=== PATIENT | male | born 1965 | race Two or more races ===

== ENCOUNTER → 2017-02-12 | Outpatient (CLI) | payer OTHER ==
--- NOTE | 2017-02-13 07:52 | MR ---
EXAMINATION TYPE: MR lumbar spine wo con DATE OF EXAM: 02/12/2017 COMPARISON: NONE HISTORY: Low back pain x5-7years TECHNIQUE: Multiplanar, multisequence images of the lumbar spine were acquired. L1-L2: Decreased disc signal is indicative of disc desiccation. Small broad-based disc bulge is seen without neural foraminal narrowing or spinal canal stenosis. L2-L3: Normal disc appearance without desiccation. No herniation, protrusion or disc bulging. No ca nal stenosis is present. Foramina are patent bilaterally. L3-L4: Flattening of the disc posteriorly relates to small broad-based disc bulge without neural fora ramsey narrowing or spinal canal stenosis. Mild ligament of flavum buckling is noted at this level. L4-L5: Annular tear and small central disc protrusion are seen without resultant spinal canal stenosi s. This is superimposed upon a broad-based disc bulge creating minimal bilateral neural foraminal nadir rowing. No spinal canal stenosis. L5-S1: Intervertebral disc space loss is seen as wall as a broad-based disc bulge in combination with facet arthropathy creating moderate bilateral neural foraminal narrowing. No spinal canal stenosis. Lumbar segments are intact. No paraspinal masses are identified. Conus medullaris has a normal appe arance. Conus medullaris terminates at L1-L2. IMPRESSION: 1. Annular tear and small central disc protrusion superimposed on a broad-based disc bulge at L4-L5 r esulting in only minimal bilateral neural foraminal narrowing and no spinal canal stenosis. 2. Broad-based disc bulge and disc desiccation at L5-S1 examination with facet arthropathy creates mo derate bilateral neural foraminal narrowing.
== END ==
LOC: RADMRIMAIN 19:22
PROVIDERS: ATTEND Family Medicine
DX: M99.73 Connective tissue and disc stenosis of intervertebral foramina of lumbar region (principal); M51.26 Other intervertebral disc displacement, lumbar region; M51.37 Other intervertebral disc degeneration, lumbosacral region; M46.87 Other specified inflammatory spondylopathies, lumbosacral region
CPT/HCPCS: 72148

== ENCOUNTER → 2019-07-31 | Outpatient (CLI) | payer OTHER ==
--- NOTE | 2019-07-31 12:16 | MR ---
EXAMINATION TYPE: MR lumbar spine wo con DATE OF EXAM: 07/31/2019 COMPARISON: 02/12/2017 HISTORY: Low Back Pain TECHNIQUE: Multiplanar, multisequence images of the lumbar spine were acquired. FINDINGS: The lumbar spine vertebral bodies maintain normal vertebral body heights and alignment. Con us medullaris is unremarkable terminating at L1-L2. Remainder the disc is seen at S1-S2. Multilevel d isc desiccation is seen. L1-L2: There is disc desiccation and a small broad-based disc bulge without spinal canal stenosis or neuroforaminal narrowing. L2-L3: There is disc desiccation without spinal canal stenosis or neural foraminal narrowing. No foca l disc herniation. Minimal facet arthropathy. L3-L4: There is a small broad-based disc bulge and mild ligamentum flavum buckling. No spinal canal s tenosis nor neural foraminal narrowing. L4-L5: Annular tear and very small central disc protrusion/herniation are seen without resultant spin al canal stenosis. There is a broad-based disc bulge again resulting in minimal neural foraminal narr owing. No progression from the prior. L5-S1: Intervertebral disc space loss, facet arthropathy and broad-based disc bulge results in modera te bilateral neural foraminal. No spinal canal stenosis. IMPRESSION: 1. Similar-appearing annular tear and small central disc herniation at L4-L5 resulting in only minima l bilateral neural foraminal narrowing without spinal canal stenosis. 2. Unchanged moderate bilateral neural foraminal narrowing at L5-S1.
== END | disposition home or self-care (01) ==
LOC: RADMRIMAIN 10:44
PROVIDERS: ATTEND Physical Medicine & Rehabilitation
DX: M48.07 Spinal stenosis, lumbosacral region (principal); M48.061 Spinal stenosis, lumbar region without neurogenic claudication; M51.26 Other intervertebral disc displacement, lumbar region; F12.90 Cannabis use, unspecified, uncomplicated
CPT/HCPCS: 72148

== ENCOUNTER → 2023-10-01 | Outpatient (CLI) | payer OTHER ==
--- NOTE | 2023-10-01 10:37 | FL ---
EXAMINATION: FL Upper GI air DATE: 10/01/2023 CLINICAL INDICATION: 58-year-old male R11.2, nausea and vomiting. COMPARISON: None Total Fluoroscopy Time: 1 minute 32 seconds Total DAP: 477.57 mGym2 43 images obtained. FINDINGS: The esophagus has a normal course, caliber, motility and mucosa. There is a tiny sliding hiatal hernia present. There is no gastroesophageal reflux identified. The stomach and duodenum are free of any persistent filling defect and demonstrate a normal mucosal p attern. IMPRESSION: Tiny sliding hiatal hernia. Otherwise, unremarkable upper GI examination.
== END | disposition home or self-care (01) ==
LOC: RADUSWWP 08:02
PROVIDERS: ATTEND Internal Medicine Gastroenterology
DX: K44.9 Diaphragmatic hernia without obstruction or gangrene (principal); R11.2 Nausea with vomiting, unspecified
CPT/HCPCS: 74246

== ENCOUNTER 2023-10-10 14:11 | Observation (INO) | payer OTHER ==
--- NOTE | 2023-10-10 15:21 | ED ---
Abdominal Pain HPI - General Chief Complaint: Abdominal Pain Stated Complaint: flu/covid symptoms Time Seen by Provider: 10/10/23 15:06 Source: patient, RN notes reviewed, old records reviewed Mode of arrival: ambulatory Limitations: no limitations - History of Present Illness Initial Comments: This is a 58-year-old male to the ER for evaluation today. Patient has history of gallbladder disease and biliary colic with prior evaluation patient presents today for gallbladder evaluation with significant, patient has having increasing or worsening symptoms of pain nausea vomiting fevers. Patient was concerned he may have coronavirus but presents for further evaluation and management MD Complaint: abdominal pain -: days(s) Location: RUQ, epigastric Radiation: RUQ, epigastric Migration to: RUQ Severity: moderate Severity scale (1-10): 7 Quality: stabbing, aching Consistency: constant Improves With: nothing Worsens With: nothing Associated Symptoms: nausea, vomiting Treatments Prior to Arrival: other (0) - Related Data Allergies Allergy/AdvReac Type Severity Reaction Status Date / Time No Known Allergies Allergy Verified 10/10/23 14:34 Review of Systems ROS Statement: Those systems with pertinent positive or pertinent negative responses have been documented in the HPI. ROS Other: All systems not noted in ROS Statement are negative. Past Medical History Past Medical History: GERD/Reflux Additional Past Medical History / Comment(s): gall bladder issues, peptic ulcers, hiatal hernia, aortic aneurysm, Additional Past Surgical History / Comment(s): pins in right knee, EGD and GI scopes, Past Psychological History: Anxiety, Depression Smoking Status: Former smoker Past Alcohol Use History: None Reported Past Drug Use History: Marijuana General Exam Limitations: no limitations General appearance: alert, in no apparent distress Head exam: Present: atraumatic, normocephalic, normal inspection Eye exam: Present: normal appearance, PERRL, EOMI. Absent: scleral icterus, conjunctival injection, periorbital swelling ENT exam: Present: normal exam, mucous membranes moist Neck exam: Present: normal inspection. Absent: tenderness, meningismus, lymphadenopathy Respiratory exam: Present: normal lung sounds bilaterally. Absent: respiratory distress, wheezes, rales, rhonchi, stridor Cardiovascular Exam: Present: regular rate, normal rhythm, normal heart sounds. Absent: systolic murmur, diastolic murmur, rubs, gallop, clicks GI/Abdominal exam: Present: soft, normal bowel sounds. Absent: distended, tenderness, guarding, rebound, rigid Extremities exam: Present: normal inspection, full ROM, normal capillary refill. Absent: tenderness, pedal edema, joint swelling, calf tenderness Back exam: Present: normal inspection Neurological exam: Present: alert, oriented X3, CN II-XII intact Psychiatric exam: Present: normal affect, normal mood Skin exam: Present: warm, dry, intact, normal color. Absent: rash Course Vital Signs 10/10/23 14:28 Temperature 98.2 F Pulse Rate 77 Respiratory 18 Rate Blood Pressure 123/77 O2 Sat by Pulse 97 Oximetry - Reevaluation(s) Reevaluation #1: 10/10/23 18:07 Medical records reviewed Reevaluation #2: 10/10/23 18:07 Patient symptoms are improving here in the ER Reevaluation #3: 10/10/23 18:07 Patient informed of results and questions answered Reevaluation #4: Was pt. sent in by a medical professional or institution (, PA, FOOD COUNTER ATTENDANT, urgent care, hospital, or halfway...) When possible be specific @ -no Did you speak to anyone other than the patient for history (EMS, parent, family, police, friend...)? What history was obtained from this source @ -no Did you review nursing and triage notes (agree or disagree)? Why? @ -agree Are old charts reviewed (outside hosp., previous admission, EMS record, old EKG, old radiological studies, urgent care reports/EKG's, halfway records)? Report findings @ -yes Differential Diagnosis (chest pain, altered mental status, abdominal pain women, abdominal pain men, vaginal bleeding, weakness, fever, dyspnea, syncope, headache, dizziness, GI bleed, back pain, seizure, CVA, palpatations, mental health, musculoskeletal)? @ -prior EKG interpreted by me (3pts min.). @ -yes X-rays interpreted by me (1pt min.). @ -yes negative for acute disease CT interpreted by me (1pt min.). @ -no U/S interpreted by me (1pt. min.). @ -no What testing was considered but not performed or refused? (CT, X-rays, U/S, labs)? Why? @ -none What meds were considered but not given or refused? Why? @ -none Did you discuss the management of the patient with other professionals (professionals i.e. DrChaim, PA, FOOD COUNTER ATTENDANT, lab, RT, psych nurse, social media senior associate, design engineer, teacher, antisubmarine weapons officer, patient case manager)? Give summary @ -no Was smoking cessation discussed for >3mins.? @ -no Was critical care preformed (if so, how long)? @ -no Were there social determinants of health that impacted care today? How? (Homelessness, low income, unemployed, alcoholism, drug addiction, transportat ion, low edu. Level, literacy, decrease access to med. care, [facility], rehab)? @ -none Was there de-escalation of care discussed even if they declined (Discuss DNR or withdrawal of care, Hospice)? DNR status @ -no What co-morbidities impacted this encounter? (DM, HTN, Smoking, COPD, CAD, Cancer, CVA, ARF, Chemo, Hep., AIDS, mental health diagnosis, sleep apnea, morbid obesity)? @ -none Was patient admitted / discharged? Hospital course, mention meds given and route, prescriptions, significant lab abnormalities, going to OR and other pertinent info. @ - Undiagnosed new problem with uncertain prognosis? @ -no Drug Therapy requiring intensive monitoring for toxicity (Heparin, Nitro, Insulin, Cardizem)? @ -no Were any procedures done? @ -no Diagnosis/symptom? @ - Acute, or Chronic, or Acute on Chronic? @ -Acute Uncomplicated (without systemic symptoms) or Complicated (systemic symptoms)? @ -Complicated Side effects of treatment? @ -no Exacerbation, Progression, or Severe Exacerbation? @ -exacerbation Poses a threat to life or bodily function? How? (Chest pain, USA, OR, pneumonia, PE, COPD, DKA, ARF, appy, cholecystitis, CVA, Diverticulitis, Homicidal, Suicidal, threat to staff... and all critical care pts) @ -yes Reevaluation #5: Differential Abdominal Pain Men: Appendicitis, cholecystitis, diverticulosis, ischemic bowel, pancreatitis, hepatitis, UTI, gastroenteritis, AAA, incarcerated hernia, bowel obstruction, constipation, inflammatory bowel, hepatitis, peptic ulcer disease, splenic infarction, perforated viscus, testicular torsion, this is not meant to be an all-inclusive list - Consultations Consultation #1: Spoke with Dr. 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 will admit for surgical evaluation and management - Lab Data Result diagrams: 10/10/23 15:42 10/10/23 15:42 Lab Results 10/10/23 10/10/23 10/10/23 Range/Units 15:42 15:42 15:42 WBC 7.1 (3.8-10.6) k/uL RBC 4.66 (4.30-5.90) m/uL Hgb 14.4 (13.0-17.5) gm/dL Hct 43.3 (39.0-53.0) % MCV 93.0 (80.0-100.0) fL MCH 30.9 (25.0-35.0) pg MCHC 33.3 (31.0-37.0) g/dL RDW 11.8 (11.5-15.5) % Plt Count 182 (150-450) k/uL MPV 8.6 Neutrophils % 66 % Lymphocytes % 25 % Monocytes % 5 % Eosinophils % 2 % Basophils % 0 % Neutrophils # 4.6 (1.3-7.7) k/uL Lymphocytes # 1.7 (1.0-4.8) k/uL Monocytes # 0.4 (0-1.0) k/uL Eosinophils # 0.2 (0-0.7) k/uL Basophils # 0.0 (0-0.2) k/uL Sodium 140 (137-145) mmol/L Potassium 3.8 (3.5-5.1) mmol/L Chloride 107 (98-107) mmol/L Carbon Dioxide 28 (22-30) mmol/L Anion Gap 5 mmol/L BUN 14 (9-20) mg/dL Creatinine 0.67 (0.66-1.25) mg/dL Est GFR (CKD-EPI)AfAm >90 (>60 ml/min/1.73 sqM) Est GFR (CKD-EPI)NonAf >90 (>60 ml/min/1.73 sqM) Glucose 101 H (74-99) mg/dL Calcium 8.9 (8.4-10.2) mg/dL Total Bilirubin 0.9 (0.2-1.3) mg/dL AST 61 H (17-59) U/L ALT 214 H (4-49) U/L Alkaline Phosphatase 171 H (38-126) U/L Troponin I <0.012 (0.000-0.034) ng/mL Total Protein 6.8 (6.3-8.2) g/dL Albumin 4.0 (3.5-5.0) g/dL Amylase 64 (30-110) U/L Lipase 164 (23-300) U/L Influenza Type A (PCR) (Not Detectd) Influenza Type B (PCR) (Not Detectd) RSV (PCR) (Not Detectd) SARS-CoV-2 (PCR) (Not Detectd) 10/10/23 Range/Units 15:52 WBC (3.8-10.6) k/uL RBC (4.30-5.90) m/uL Hgb (13.0-17.5) gm/dL Hct (39.0-53.0) % MCV (80.0-100.0) fL MCH (25.0-35.0) pg MCHC (31.0-37.0) g/dL RDW (11.5-15.5) % Plt Count (150-450) k/uL MPV Neutrophils % % Lymphocytes % % Monocytes % % Eosinophils % % Basophils % % Neutrophils # (1.3-7.7) k/uL Lymphocytes # (1.0-4.8) k/uL Monocytes # (0-1.0) k/uL Eosinophils # (0-0.7) k/uL Basophils # (0-0.2) k/uL Sodium (137-145) mmol/L Potassium (3.5-5.1) mmol/L Chloride (98-107) mmol/L Carbon Dioxide (22-30) mmol/L Anion Gap mmol/L BUN (9-20) mg/dL Creatinine (0.66-1.25) mg/dL Est GFR (CKD-EPI)AfAm (>60 ml/min/1.73 sqM) Est GFR (CKD-EPI)NonAf (>60 ml/min/1.73 sqM) Glucose (74-99) mg/dL Calcium (8.4-10.2) mg/dL Total Bilirubin (0.2-1.3) mg/dL AST (17-59) U/L ALT (4-49) U/L Alkaline Phosphatase (38-126) U/L Troponin I (0.000-0.034) ng/mL Total Protein (6.3-8.2) g/dL Albumin (3.5-5.0) g/dL Amylase (30-110) U/L Lipase (23-300) U/L Influenza Type A (PCR) Not Detected (Not Detectd) Influenza Type B (PCR) Not Detected (Not Detectd) RSV (PCR) Not Detected (Not Detectd) SARS-CoV-2 (PCR) Not Detected (Not Detectd) - Radiology Data Radiology results: report reviewed (Ultrasound positive for porcelain gallbladder gallbladder cholecystitis), image reviewed Disposition Clinical Impression: Abdominal pain, Abdominal colic, Cholecystitis Disposition: ADMITTED IP TO THIS [facility] Condition: Fair Is patient prescribed a controlled substance at d/c from ED?: No Referrals: Dahlia Hansen MD [Primary Care Provider] - 1-2 days Time of Disposition: 18:00
[2023-10-10] MEDS: SODIUM CHLORIDE 0.9% 1,000 ML IV STA (15:53)
[2023-10-10] MEDS: ONDANSETRON 4 MG/2 ML VIAL IVP STA (16:04)
[2023-10-10] MEDS: PANTOPRAZOLE 40 MG/10 ML VIAL IVP STA (16:05)
[2023-10-10] MEDS: KETOROLAC 15 MG/ML 1 ML VIAL IVP STA (16:05)
[2023-10-10 16:10] LABS: ALT 214 U/L (4-49); AST 61 U/L (17-59); African American GFR (CKD) >90 (>60 ml/min/1.73 sqM); Alkaline Phosphatase 171 U/L (38-126); Amylase 64 U/L (30-110); Anion Gap 5 mmol/L; Blood Urea Nitrogen 14 mg/dL (9-20); Calcium 8.9 mg/dL (8.4-10.2); Carbon Dioxide 28 mmol/L (22-30); Chloride 107 mmol/L (98-107); Glucose 101 mg/dL (74-99); Lipase 164 U/L (23-300); Non-African American GFR(CKD) >90 (>60 ml/min/1.73 sqM); Potassium 3.8 mmol/L (3.5-5.1); Sodium 140 mmol/L (137-145); Total Bilirubin 0.9 mg/dL (0.2-1.3); Total Protein 6.8 g/dL (6.3-8.2)
[2023-10-10 16:12] LABS: Basophils % (A) 0 %; Eosinophils # (A) 0.2 k/uL (0-0.7); Eosinophils % (A) 2 %; HCT 43.3 % (39.0-53.0); HGB 14.4 gm/dL (13.0-17.5); Lymphocytes # (A) 1.7 k/uL (1.0-4.8); Lymphocytes % (A) 25 %; MCH 30.9 pg (25.0-35.0); MCHC 33.3 g/dL (31.0-37.0); Mean Platelet Volume 8.6; Monocytes # (A) 0.4 k/uL (0-1.0); Monocytes % (A) 5 %; Neutrophils # (A) 4.6 k/uL (1.3-7.7); Neutrophils % (A) 66 %; Platelet Count 182 k/uL (150-450); RBC 4.66 m/uL (4.30-5.90); RDW 11.8 % (11.5-15.5); WBC 7.1 k/uL (3.8-10.6)
--- NOTE | 2023-10-10 17:07 | US ---
EXAMINATION TYPE: US gallbladder DATE OF EXAM: 10/10/2023 COMPARISON: CT 03/06/2022 CLINICAL INDICATION: Male, 58 years old with history of pain; Pain/vomiting x 2 weeks. TECHNIQUE: Multiple sonographic images of the right upper quadrant are obtained. FINDINGS: EXAM MEASUREMENTS: Liver Length: 17.1 cm Gallbladder Wall: 0.39 cm CBD: 0.22 cm Right Kidney: 11.7 x 5.7 x 5.4 cm CUSTOM FEED CORN OPERATOR NOTES: Limited due to gas. Pancreas: Not well seen. Liver: Measures upper limits. Gallbladder: Wall appears thickened. Hyperechoic, heterogeneous area that appears to be mostly calcified seen within the gallbladder wit h posterior shadowing : 4.5 x 1.7 x 1.3 cm. Evidence for sonographic Bliss's sign: No CBD: Appears wnl Right Kidney: No hydronephrosis or masses seen IMPRESSION: Calcified thickened gallbladder wall with marked cholelithiasis. No pericholecystic fluid or biliary ductal dilatation. The sonographic Bliss sign is negative. Findings consistent with marked chronic l ithiasis and porcelain gallbladder. Further evaluation with CT of the abdomen and pelvis is recommend ed on a nonemergent basis.
--- NOTE | 2023-10-10 17:30 | XR ---
KUB. HISTORY: Abdominal pain. COMPARISON: None. TECHNIQUE: 2 upright views of the abdomen were obtained. FINDINGS: The lung bases are clear. There is no free intraperitoneal air beneath the diaphragm. The bowel gas pattern is nonspecific and there is no evidence of obstruction. No suspicious abdominal or pelvic calcifications are seen. There is a mixed sclerotic/lucent osseous mass in the proximal right femur. CT of the right hip would be useful for further evaluation. IMPRESSION: Nonspecific abdomen without evidence of free air or obstruction. Right femur mass and CT is recommend ed for further evaluation.
[2023-10-10] MEDS ORDERED: NALOXONE 0.4 MG/ML 1 ML VIAL IV PRN (18:01)
[2023-10-10] MEDS: AMPICILLIN-SULBACTAM 3 GM in SODIUM CHLORIDE 0.9% 100 ML IVPB STA (18:22)
[2023-10-10] MEDS: HYDROmorphone 0.5 MG/0.5 ML SYRINGE IVP STA (18:22)
[2023-10-10] MEDS: SODIUM CHLORIDE 0.9% 1,000 ML IV SCH (18:23)
[2023-10-10 22:41] LABS: Appearance,Urine Cloudy (Clear); Bilirubin,Urine Negative (Negative); Blood,Urine Negative (Negative); Color,Urine Yellow; Glucose,Urine (UA) Negative (Negative); Ketones,Urine Negative (Negative); Leukocyte Esterase,Urine Negative (Negative); Mucus,Urine Many /hpf; Nitrite,Urine Negative (Negative); Protein,Urine 1+ (Negative); RBC,Urine <1 /hpf (0-5); Specific Gravity,Urine 1.037 (1.001-1.035); WBC,Urine 2 /hpf (0-5)
[2023-10-11] MEDS: AMPICILLIN-SULBACTAM 3 GM in SODIUM CHLORIDE 0.9% 100 ML IVPB SCH ×2 (02:20→14:56)
--- NOTE | 2023-10-11 04:30 | P.HPIM ---
History of Present Illness H&P Date: 10/10/23 Chief Complaint: abd pain nausea and vomiting 58-year-old male with history of aortic aneurysm for which he takes blood pressure medications patient has been having abd pain he calls gall bladder gut wrenching pain for the past 2 weeks 03/26 in severity sharp colicky pain worse with eating, where he was told he needed surgery back on October 02. having chills, fever, having dark orange urine , constipated, vomiting non bilious non bloody . having bouts of small loose stools , but no satisfactory bowel movement , no abd distention. Decreased p.o. intake Patient also reports some right hip discomfort for which she takes Lyrica , he denies any injuries he thought that he could have pulled a muscle. I discussed with him x-ray findings suggestive of possible mass in his right femur patient is not aware of any issues and his leg other than the muscle cramps he feels every now and then. Abdominal exam voluntary guarding with tenderness in the epigastric and right upper quadrant region to deep palpation, Femur exam no palpable masses no tenderness to palpation review of systems Pertinent positives as noted in HPI. All other systems were reviewed and are negative on exam Constitutional: No acute distress, Eyes: Anicteric sclerae, moist conjunctiva, Pupils equal round reactive to light ENMT: NC/AT Oropharynx clear, no erythema, or exudates Neck: Supple, no masses, or JVD No carotid bruits No thyromegaly Lungs: Clear to auscultation Clear to percussion Normal respiratory effort, no accessory muscle use Cardiovascular: Heart regular in rate and rhythm, No murmurs, gallops, or rubs No peripheral edema Abdominal: Soft Tenderness to palpation of the epigastric and right upper quadrant with voluntary guarding no rebound or rigidity Abdomen moving with respiration Normoactive bowel sounds Extremities: No digital cyanosis No clubbing Pedal pulses intact and symmetrical Radial pulses intact and symmetrical No calf tenderness Psychiatric: Alert and oriented to person, place and time Appropriate affect fair judgement Neuro Muscles Strength 5/5 in all 4 extremities Sensation to light touch grossly present throughout Cranial nerves II-XII grossly intact Past Medical History Past Medical History: GERD/Reflux Additional Past Medical History / Comment(s): gall bladder issues, peptic ulcers, hiatal hernia, aortic aneurysm, Additional Past Surgical History / Comment(s): pins in right knee, EGD and GI scopes, Past Psychological History: Anxiety, Depression Smoking Status: Former smoker Past Alcohol Use History: None Reported Past Drug Use History: Marijuana Medications and Allergies Home Medications Medication Instructions Recorded Confirmed Type Acetaminophen-Codeine 300-30mg 1 tab PO BID 10/10/23 10/10/23 History [Tylenol w/codeine #3] Albuterol Sulfate [Albuterol 2 puff PO RT-Q6H PRN 10/10/23 10/10/23 History Sulfate Hfa] DULoxetine HCL [Cymbalta] 30 mg PO DAILY 10/10/23 10/10/23 History Dicyclomine [Bentyl] 10 mg PO TID 10/10/23 10/10/23 History Famotidine [Pepcid] 40 mg PO HS 10/10/23 10/10/23 History Fluticasone Nasal [place] [Flonase 1 spray EA NOSTRIL DAILY 10/10/23 10/10/23 History Nasal [place]and[place]s] Losartan [Cozaar] 25 mg PO DAILY 10/10/23 10/10/23 History Metoclopramide [Reglan] 10 mg PO QID 10/10/23 10/10/23 History Omeprazole 40 mg PO DAILY 10/10/23 10/10/23 History Pregabalin [Lyrica] 50 mg PO BID 10/10/23 10/10/23 History traZODone HCL [Desyrel] 200 mg PO HS 10/10/23 10/10/23 History Allergies Allergy/AdvReac Type Severity Reaction Status Date / Time No Known Allergies Allergy Verified 10/10/23 18:25 Physical Exam Vitals: Vital Signs Temp Pulse Resp BP Pulse Ox 10/11/23 03:13 52 L 98 10/11/23 02:26 97.9 F 48 L 16 170/79 96 10/10/23 21:00 57 L 16 158/71 97 10/10/23 14:28 98.2 F 77 18 123/77 97 Intake and Output 10/10/23 10/10/23 10/11/23 14:59 22:59 06:59 Other: Weight 82.554 kg Results CBC & Chem 7: 10/10/23 15:42 10/10/23 15:42 Labs: Abnormal Lab Results - Last 24 Hours (Table) 10/10/23 10/10/23 Range/Units 15:42 22:25 Glucose 101 H (74-99) mg/dL AST 61 H (17-59) U/L ALT 214 H (4-49) U/L Alkaline Phosphatase 171 H (38-126) U/L Ur Specific Power 1.037 H (1.001-1.035) Urine Protein 1+ H (Negative) Urine Mucus Many H (None) /hpf Assessment and Plan Assessment: 58-year-old male with hypertension history of aneurysm coming in with 2-week history of wrenching abdominal pain repeated nausea vomiting and constipation he is aware that he had some gallbladder disease I discussed case with ED doctor and accepted the admission for chronic gallbladder lithiasis and right femur mass for surgical evaluation with anticipated length of stay more than 2 midnights Porcelain gallbladder N.p.o. IV fluid hydration normal saline IV antibiotics with Unasyn 3 g IV piggyback every 8 hours Zofran 4 mg IV push every 8 hours as needed Famotidine 20 mg twice daily General surgery consult Liver enzymes showing elevated AST 61 ALT 214 alkaline phosphatase 171 bilirubin is within normal limits No leukocytosis white count 7.1 Hypertension controlled Continue losartan right femur mass incidental finding orthopedic consult Blood work overall unremarkable sodium 140 potassium 3.8 BUN 14 creatinine 0.67 Hemoglobin unremarkable 14.4 Urinalysis unremarkable Acute respiratory viral panel negative for COVID RSV and influenza Full code DVT prophylaxis heparin subcu 3 times daily 5000 units GI prophylaxis on famotidine 20 mg p.o. twice daily
[2023-10-11] MEDS: IOPAMIDOL CONTRAST (ORAL USE) VIAL PO PRN (09:04)
[2023-10-11] MEDS: HEPARIN SODIUM,PORCINE 5,000 UNIT/ML 1 ML VIAL SQ SCH (09:06)
[2023-10-11] MEDS: LOSARTAN 25 MG TAB PO SCH (09:31)
[2023-10-11] MEDS: PANTOPRAZOLE 40 MG TABLET PO SCH (09:31)
[2023-10-11] MEDS: PREGABALIN 50 MG CAP PO SCH (09:31)
[2023-10-11] MEDS: PANTOPRAZOLE 40 MG/10 ML VIAL IV SCH (10:14)
[2023-10-11 10:28] LABS: Basophils # (A) 0.04 X 10*3/uL (0.00-0.10); Basophils % (A) 0.6 %; Eosinophils # (A) 0.11 X 10*3/uL (0.04-0.35); Eosinophils % (A) 1.6 %; HCT 40.1 % (39.6-50.0); HGB 13.4 g/dL (13.0-17.0); Lymphocytes # (A) 1.51 X 10*3/uL (0.90-5.00); Lymphocytes % (A) 22.6 %; MCH 30.6 pg (27.0-32.0); MCHC 33.4 g/dL (32.0-37.0); MCV 91.6 FL (80.0-97.0); Mean Platelet Volume 11.8 FL (9.5-12.2); Monocytes # (A) 0.37 X 10*3/uL (0.20-1.00); Monocytes % (A) 5.5 %; NRBC Per 100 WBC 0 X 10*3/uL (0.00-0.01); Neutrophils # (A) 4.61 X 10*3/uL (1.80-7.70); Neutrophils % (A) 69.1 %; Platelet Count 185 X 10*3/uL (140-440); RBC 4.38 X 10*6/uL (4.40-5.60); RDW 11.7 % (11.5-14.5); WBC 6.68 X 10*3/uL (4.50-10.00)
[2023-10-11 11:08] LABS: ALT 159 U/L (10-49); AST 45 U/L (14-35); Albumin 3.7 g/dL (3.8-4.9); Albumin/Globulin Ratio 1.61 Ratio (1.60-3.17); Alkaline Phosphatase 181 U/L (41-126); Blood Urea Nitrogen 11.6 mg/dL (9.0-27.0); Calcium 8.8 mg/dL (8.7-10.3); Carbon Dioxide 27.8 mmol/L (21.6-31.8); Chloride 106 mmol/L (96-109); Globulin 2.3 g/dL (1.6-3.3); Glucose 125 mg/dL (70-110); Lipase 44 U/L (14-60); Magnesium 2.1 mg/dL (1.5-2.4); Phosphorus 2.3 mg/dL (2.4-5.1); Potassium 4.7 mmol/L (3.5-5.5); Sodium 141 mmol/L (135-145); Total Bilirubin 0.8 mg/dL (0.3-1.2)
--- NOTE | 2023-10-11 12:26 | P.GSCN ---
History of Present Illness Consult date: 10/11/23 History of present illness: CHIEF COMPLAINT: Abdominal pain HISTORY OF PRESENT ILLNESS: This is a 58-year-old male who presented to the hospital with complaints of right upper quadrant abdominal pain for the past 2 months. He initially felt that his pain and nausea was related to what he thought was flu or COVID infection. Patient reports that he was told prior that he had a bad gallbladder. Patient reports having nausea and vomiting. He has had increase in pain. He also reports pain along the right thigh. He thought he pulled a muscle. Gallbladder ultrasound had reported thickened gallbladder wall with gallstones and porcelain gallbladder. Also imaging had noted possible right femur mass. Orthopedics are on consult. Patient denies any alcohol use. Does report prior history of smoking. Also reports that he has had weight loss of a few pounds. PAST MEDICAL HISTORY: See below PAST SURGICAL HISTORY: See below MEDICATIONS: See below ALLERGIES: See below SOCIAL HISTORY: No illicit drug use. REVIEW OF SYSTEMS: CONSTITUTIONAL: Denies fever or chills. HEENT: Denies blurred vision, vision changes, or eye pain. Denies hemoptysis CARDIOVASCULAR: Denies chest pain or pressure. RESPIRATORY: No shortness of breath. GASTROINTESTINAL: See HPI for pertinent findings HEMATOLOGIC: Denies bleeding disorders. GENITOURINARY: Denies any blood in urine or increased urinary frequency. SKIN: Denies pruitis. Denies rash. PHYSICAL EXAM: VITAL SIGNS: Reviewed GENERAL: Well-developed in no acute distress. HEENT: No sclera icterus. Extraocular movements grossly intact. Moist buccal mucosa. Head is atraumatic, normocephalic. No nasal drainage. ABDOMEN: Soft. Nondistended. Right upper quadrant tenderness with palpation NEUROLOGIC: Alert and oriented. Cranial nerves II through XII grossly intact. LABORATORY DATA: WBC 6.68 Hgb 13.4 platelets 185 Sodium is 141 potassium 4.7 creatinine 0.8 Total bilirubin 0.8 AST 45 ALT 159 alk phos 181 Lipase 44 IMAGING: Gallbladder ultrasound reports calcified thickened gallbladder wall with marked cholelithiasis. No pericholecystic fluid or biliary ductal dilatation. Bliss sign negative. Findings consistent with marked chronic cholelithiasis and porcelain gallbladder KUB x-ray nonspecific abdomen without evidence of free air or obstruction. Right femur mass and CT is recommended ASSESSMENT: 1. Possible Chronic cholecystitis with cholelithiasis and porcelain gallbladder. Right upper quadrant abdominal pain with nausea and vomiting. Ultrasound reporting thickened gallbladder wall with cholelithiasis and porcelain gallbladder 2. Elevated LFTs 3. Left femur mass PLAN: -CT scan abdomen and pelvis ordered for further evaluation of cholecystitis -CT scan of left hip for evaluation of left femur mass. Agree with orthopedic consult -Patient is tentatively scheduled for laparoscopic cholecystectomy today with Dr. Motta -Keep patient p.o. -Continue antibiotics -Continue pain management -Continue IV fluids Physician Sr Account Executive note has been reviewed by physician. Signing provider agrees with the documented findings, assessment, and plan of care. 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 Based on total visit time, I have performed more than 50% of the visit. As above: Patient with ongoing right upper quadrant pain nausea and vomiting. I did repeat the patient's CAT scan given his symptoms and there is no signs of obstruction. There is mild duodenal thickening. No definite ulcer. Gallbladder appears inflamed and a chronic nature. Today's labs show no increasing liver enzymes however liver enzymes are slightly elevated from admission. Options discussed with patient. Will proceed with laparoscopic, possible open cholecystectomy at this time. If symptoms persist postoperatively will require upper endoscopy. He did have a recent upper GI only showing a tiny hiatal hernia however. Risks of bleeding, infection, bile leak, bile duct injury, retained common bile duct stone, trocar injury, conversion to an open procedure, hernia, anesthesia related complications were reviewed. The patient understands and wishes to proceed. Past Medical History Past Medical History: GERD/Reflux Additional Past Medical History / Comment(s): gall bladder issues, peptic ulcers, hiatal hernia, aortic aneurysm, Additional Past Surgical History / Comment(s): pins in right knee, EGD and GI scopes, Past Psychological History: Anxiety, Depression Smoking Status: Former smoker Past Alcohol Use History: None Reported Past Drug Use History: Marijuana Medications and Allergies Home Medications Medication Instructions Recorded Confirmed Type Acetaminophen-Codeine 300-30mg 1 tab PO BID 10/10/23 10/10/23 History [Tylenol w/codeine #3] Albuterol Sulfate [Albuterol 2 puff PO RT-Q6H PRN 10/10/23 10/10/23 History Sulfate Hfa] DULoxetine HCL [Cymbalta] 30 mg PO DAILY 10/10/23 10/10/23 History Dicyclomine [Bentyl] 10 mg PO TID 10/10/23 10/10/23 History Famotidine [Pepcid] 40 mg PO HS 10/10/23 10/10/23 History Fluticasone Nasal [place] [Flonase 1 spray EA NOSTRIL DAILY 10/10/23 10/10/23 History Nasal [place]] Losartan [Cozaar] 25 mg PO DAILY 10/10/23 10/10/23 History Metoclopramide [Reglan] 10 mg PO QID 10/10/23 10/10/23 History Omeprazole 40 mg PO DAILY 10/10/23 10/10/23 History Pregabalin [Lyrica] 50 mg PO BID 10/10/23 10/10/23 History traZODone HCL [Desyrel] 200 mg PO HS 10/10/23 10/10/23 History Allergies Allergy/AdvReac Type Severity Reaction Status Date / Time No Known Allergies Allergy Verified 10/10/23 18:25 Surgical - Exam Vital Signs Temp Pulse Resp BP Pulse Ox 98.2 F 77 18 123/77 97 10/10/23 14:28 10/10/23 14:28 10/10/23 14:28 10/10/23 14:28 10/10/23 14:28 Results - Labs 10/11/23 07:07 10/11/23 07:07 Abnormal Lab Results - Last 24 Hours (Table) 10/10/23 10/10/23 10/11/23 Range/Units 15:42 22:25 07:07 RBC 4.38 L (4.40-5.60) X 10*6/uL Glucose 101 H (74-99) mg/dL Phosphorus (2.4-5.1) mg/dL AST 61 H (17-59) U/L ALT 214 H (4-49) U/L Alkaline Phosphatase 171 H (38-126) U/L Total Protein (6.2-8.2) g/dL Albumin (3.8-4.9) g/dL Ur Specific [place] 1.037 H (1.001-1.035) Urine Protein 1+ H (Negative) Urine Mucus Many H (None) /hpf 10/11/23 Range/Units 07:07 RBC (4.40-5.60) X 10*6/uL Glucose 125 H (74-99) mg/dL Phosphorus 2.3 L (2.4-5.1) mg/dL AST 45 H (17-59) U/L ALT 159 H (4-49) U/L Alkaline Phosphatase 181 H (38-126) U/L Total Protein 6.0 L (6.2-8.2) g/dL Albumin 3.7 L (3.8-4.9) g/dL Ur Specific [place] (1.001-1.035) Urine Protein (Negative) Urine Mucus (None) /hpf Diabetes panel 10/10/23 10/11/23 Range/Units 15:42 07:07 Sodium 140 141 (137-145) mmol/L Potassium 3.8 4.7 (3.5-5.1) mmol/L Chloride 107 106 (98-107) mmol/L Carbon Dioxide 28 27.8 (22-30) mmol/L BUN 14 11.6 (9-20) mg/dL Creatinine 0.67 0.8 (0.66-1.25) mg/dL Glucose 101 H 125 H (74-99) mg/dL Calcium 8.9 8.8 (8.4-10.2) mg/dL AST 61 H 45 H (17-59) U/L ALT 214 H 159 H (4-49) U/L Alkaline Phosphatase 171 H 181 H (38-126) U/L Total Protein 6.8 6.0 L (6.3-8.2) g/dL Albumin 4.0 3.7 L (3.5-5.0) g/dL Calcium panel 10/10/23 10/11/23 Range/Units 15:42 07:07 Calcium 8.9 8.8 (8.4-10.2) mg/dL Phosphorus 2.3 L (2.4-5.1) mg/dL Albumin 4.0 3.7 L (3.5-5.0) g/dL Pituitary panel 10/10/23 10/11/23 Range/Units 15:42 07:07 Sodium 140 141 (137-145) mmol/L Potassium 3.8 4.7 (3.5-5.1) mmol/L Chloride 107 106 (98-107) mmol/L Carbon Dioxide 28 27.8 (22-30) mmol/L BUN 14 11.6 (9-20) mg/dL Creatinine 0.67 0.8 (0.66-1.25) mg/dL Glucose 101 H 125 H (74-99) mg/dL Calcium 8.9 8.8 (8.4-10.2) mg/dL Adrenal panel 10/10/23 10/11/23 Range/Units 15:42 07:07 Sodium 140 141 (137-145) mmol/L Potassium 3.8 4.7 (3.5-5.1) mmol/L Chloride 107 106 (98-107) mmol/L Carbon Dioxide 28 27.8 (22-30) mmol/L BUN 14 11.6 (9-20) mg/dL Creatinine 0.67 0.8 (0.66-1.25) mg/dL Glucose 101 H 125 H (74-99) mg/dL Calcium 8.9 8.8 (8.4-10.2) mg/dL Total Bilirubin 0.9 0.8 (0.2-1.3) mg/dL AST 61 H 45 H (17-59) U/L ALT 214 H 159 H (4-49) U/L Alkaline Phosphatase 171 H 181 H (38-126) U/L Total Protein 6.8 6.0 L (6.3-8.2) g/dL Albumin 4.0 3.7 L (3.5-5.0) g/dL
--- NOTE | 2023-10-11 12:50 | CT ---
EXAMINATION TYPE: CT hip RT w con DATE OF EXAM: 10/11/2023 COMPARISON: 10/11/[address] 01/19/2010. HISTORY: 58-year-old male possible mass TECHNIQUE: Contiguous axial scanning of the right hip performed with IV Contrast, patient injected wi th 100 mL of Isovue 300. Coronal/sagittal reconstructions performed. 3-D reconstructions generated on a dedicated independent workstation. CT DLP: 397.3 mGycm Automated exposure control for dose reduction was used. FINDINGS: There is a large lesion spanning the femoral neck extending into the intertrochanteric region 5.4 x 4 .1 x 2.2 cm. This is a mixed density lesion with peripheral stellate sclerotic margins, internal bony trabeculations, and mostly intrinsic fat density but some soft tissue density as well. There is slight endosteal scalloping along the anterior femoral neck cortex. Similar lesion seems to have been present on 01/19/2010. The hip joint itself is intact. Prostate gland aligned mildly enlarged at 4.37 m wide. No significant soft tissue abnormality seen. IMPRESSION: LARGE 5.4 CM MIXED DENSITY LESION INVOLVING THE RIGHT FEMORAL NECK EXTENDING DOWN INTO THE INTERTROCH ANTERIC REGION. A SIMILAR LESION WAS PRESENT ON THE OLD 01/19/2010 CT scan, findings suggest a benig n etiology. However, the slight endosteal scalloping along the anterior femoral neck cortex may predi spose the patient to pathologic fracture. Recommend orthopedic evaluation for any preventative manage ment. If asymptomatic and entirely incidental, this can be performed on an outpatient basis. Differpal tial possibility includes a mesenchymal tumor such as liposclerosing myxofibrous tumor.
--- NOTE | 2023-10-11 13:06 | CT ---
EXAMINATION TYPE: CT abdomen pelvis w con CT DLP: 899 mGycm, Automated exposure control for dose reduction was used. DATE OF EXAM: 10/11/2023 11:17 AM COMPARISON: No recent CT comparisons. CLINICAL INDICATION:Male, 58 years old with history of Cholecystitis; abdominal pain TECHNIQUE: Axial CT abdomen pelvis w con;Sagittal and coronal reformats were created on a separate w orkstation. Contrast used:100 mL of Isovue 300 with IV Contrast, (none if empty) Oral contrast used: with Oral Contrast (none if empty) FINDINGS: LOWER CHEST: Unremarkable ABDOMEN LIVER: Unremarkable GALLBLADDER AND BILE DUCTS: Cholelithiasis versus partially calcified gallbladder wall. Ultrasound fo llow-up recommended. PANCREAS: Unremarkable. SPLEEN: Unremarkable. ADRENAL GLANDS: Unremarkable. KIDNEYS AND URETERS: No evidence of hydronephrosis or renal calculus. The ureters are unremarkable. PELVIS BLADDER: Unremarkable REPRODUCTIVE: Unremarkable. ABDOMEN & PELVIS STOMACH AND BOWEL: Stomach and duodenum are unremarkable. No evidence of bowel obstruction. PERITONEUM/RETROPERITONEUM: No evidence of pneumoperitoneum or free fluid. VASCULATURE: No evidence of aortic aneurysm. MUSCULOSKELETAL: No acute osseous abnormalities LYMPH NODES: No gross evidence for lymphadenopathy. SOFT TISSUE/ABDOMINAL WALL: Unremarkable IMPRESSION: 1. No definite CT evidence of an acute process in the abdomen or pelvis. 2. Cholelithiasis versus partially calcified gallbladder wall. Ultrasound follow-up recommended.
[2023-10-11] MEDS: IV FLUID CONTINUATION 100 ML IV ONE (14:16)
[2023-10-11] MEDS: LACTATED RINGERS 1,000 ML IV ONE (14:16)
[2023-10-11] MEDS ORDERED: SUCCINYLCHOLINE CHLORIDE 200 MG/10 ML VIAL IV ONE (14:51)
[2023-10-11] MEDS ORDERED: GLYCOPYRROLATE 0.2 MG/ML 2 ML VIAL ONE (14:51)
[2023-10-11] MEDS ORDERED: PROPOFOL 10 MG/ML 20 ML VIAL IV ONE (14:51)
[2023-10-11] MEDS ORDERED: ROCURONIUM 10 MG/ML (5 ML VIAL) IV ONE (14:51)
[2023-10-11] MEDS ORDERED: LABETALOL 5 MG/ML VIAL MDV ONE (14:51)
[2023-10-11] MEDS ORDERED: MIDAZOLAM 2 MG/2 ML VIAL ONE (14:51)
[2023-10-11] MEDS ORDERED: LIDOCAINE 1% INJ 10MG/ML (20 ML MDV) ONE (14:51)
[2023-10-11] MEDS ORDERED: WATER FOR INJECTION, STERILE 10 ML VIAL IV ONE (14:51)
[2023-10-11] MEDS ORDERED: HYDROmorphone (PF) 1 MG/ML ONE (14:51)
[2023-10-11] MEDS ORDERED: hydrALAZINE HCL 20 MG/ML 1 ML VIAL ONE (14:51)
[2023-10-11] MEDS ORDERED: NEOSTIGMINE 1 MG/ML 10 ML VIAL ONE (14:51)
[2023-10-11] MEDS ORDERED: fentaNYL (PF) 50 MCG/ML 2 ML AMP ONE (14:51)
[2023-10-11] MEDS: BUPIVACAINE (PF) 0.25% 30 ML VIAL SQ ONE ×2 (15:12→15:20)
[2023-10-11] MEDS ORDERED: traMADol 50 MG TAB PO PRN (15:56)
--- NOTE | 2023-10-11 16:00 | P.OP ---
Date of Procedure: 10/11/23 Procedure(s) Performed: PREOPERATIVE DIAGNOSIS: Acute calculus cholecystitis POSTOPERATIVE DIAGNOSIS: Same PROCEDURE: Laparoscopic cholecystectomy SURGEON: Ángela EBL: Minimal see anesthesia record ANESTHESIA: Gen. COMPLICATIONS: None OPERATIVE PROCEDURE: The patient was brought and placed on the operating room table in the supine position. The patient was placed under general anesthesia at that time. The abdomen was prepped and draped in the usual sterile fashion. A small curvilinear supraumbilical incision was made. The fascia was grasped with the Dong forceps. The fascia was retracted anteriorly. The Veress needle was advanced into the peritoneal cavity. The saline drop test was normal. Insufflation took place up to 15 mmHg. A 5 mm optical trocar was advanced and the peritoneal cavity. 2 additional 5 mm trochars were placed in the right upper quadrant under direct visualization. A 12 mm trocar was advanced into the epigastric incision site. There was some adhesions inferior to our trocar entrance site from a previous hernia repair. We were away from the adhesions. The gallbladder was retracted superiorly and laterally. It had some acute and chronic inflammatory changes present. The peritoneum overlying the infundibulum was bluntly dissected. The patient's cystic duct was visualized. The junction between the cystic duct common and hepatic duct was identified. The critical view of safety was achieved after blunt dissection. The cystic duct was then divided after placement of 3 12 mm clips on the patient's side and one on the specimen side. The cystic artery was identified and clipped as well. A small vessel was seen along the gallbladder fossa and clipped as well. The gallbladder was then removed from the liver bed using electrocautery. The gallbladder was then removed from the epigastric trocar site with an Endo Catch bag. The gallbladder fossa was irrigated with saline. There was no evidence of any bleeding or biliary drainage seen. The fascia at the 12 millimeter site was closed using a Keaton-Lily 0 Vicryl stitch. The trochars were then removed. The skin at all 4 sites was closed using a 4-0 Monocryl stitch. Skin glue was utilized on the incision sites. At the end of this procedure the sponge and needle counts were correct. DISPOSITION: Stable to the recovery room
[2023-10-11] MEDS: HYDROmorphone 0.5 MG/0.5 ML SYRINGE IVP ONE (16:37)
--- NOTE | 2023-10-11 17:02 | P.CNOR ---
History of Present Illness - [facility] Consult date: 10/11/23 Requesting physician: Monae Dunn Consult reason: other (right femur mass) History of present illness: Patient is a 58-year-old male who presents to the hospital with complaints of ri ght upper quadrant pain for the past couple months. It was noted that the patient had nausea vomiting over the past couple months as well and increase in pain. Patient also notes pain in the right thigh over the past month or month and a half initially, patient thought he pulled his groin muscle. Patient denies any significant trauma/falls. Orthopedics was consulted due to right femur mass. Patient was seen in recovery this afternoon after laparoscopic cholecystectomy was performed. Patient states over the past month and a half he has had right thigh/groin pain. Patient states he normally ambulates independently. Patient denies having any significant weakness, however, patient states she does have pain when he bears weight to the right lower extremity. Patient denies any trauma/falls. Patient denies any alcohol use. Patient does report a prior history of smoking. He says there is also been a weight loss of a few pounds recently. Patient denies chest pain, breath, loss of bowel/bladder control. Past Medical History Past Medical History: GERD/Reflux Additional Past Medical History / Comment(s): gall bladder issues, peptic ulcers, hiatal hernia, aortic aneurysm, Additional Past Surgical History / Comment(s): pins in right knee, EGD and GI scopes, Past Psychological History: Anxiety, Depression Smoking Status: Former smoker Past Alcohol Use History: None Reported Past Drug Use History: Marijuana Medications and Allergies Home Medications Medication Instructions Recorded Confirmed Type Acetaminophen-Codeine 300-30mg 1 tab PO BID 10/10/23 10/10/23 History [Tylenol w/codeine #3] Albuterol Sulfate [Albuterol 2 puff PO RT-Q6H PRN 10/10/23 10/10/23 History Sulfate Hfa] DULoxetine HCL [Cymbalta] 30 mg PO DAILY 10/10/23 10/10/23 History Dicyclomine [Bentyl] 10 mg PO TID 10/10/23 10/10/23 History Famotidine [Pepcid] 40 mg PO HS 10/10/23 10/10/23 History Fluticasone Nasal [place] [Flonase 1 spray EA NOSTRIL DAILY 10/10/23 10/10/23 History Nasal [place]] Losartan [Cozaar] 25 mg PO DAILY 10/10/23 10/10/23 History Metoclopramide [Reglan] 10 mg PO QID 10/10/23 10/10/23 History Omeprazole 40 mg PO DAILY 10/10/23 10/10/23 History Pregabalin [Lyrica] 50 mg PO BID 10/10/23 10/10/23 History traZODone HCL [Desyrel] 200 mg PO HS 10/10/23 10/10/23 History oxyCODONE HCL [OxyIR] 5 mg PO Q6H PRN 3 Days #6 tab 10/11/23 Rx Allergies Allergy/AdvReac Type Severity Reaction Status Date / Time No Known Allergies Allergy Verified 10/10/23 18:25 Physical Examination Negative for any open fractures, significant erythema/ecchymosis. Abdominal wounds present from laparoscopic cholecystectomy. Right hip presents with out any swelling or ecchymosis or open fractures. Sensation is equal, symmetric, bilateral intact throughout the upper and lower extremities on exam. There is a fair amount of tenderness to palpation diffusely throughout the right hip and groin. Patient has full range of motion throughout bilateral lower extremities and upper extremities on exam. There is some pain reproduced with resisted right hip flexion/extension. 4/5 in all major motor groups in bilateral upper and lower extremities. Radial pulse intact, 2+ bilaterally. Cap refill under 3 seconds in digits of upper extremities. Negative Homans bilaterally. Results - Labs Labs: Abnormal Lab Results - Last 24 Hours (Table) 10/10/23 10/11/23 10/11/23 Range/Units 22:25 07:07 07:07 RBC 4.38 L (4.40-5.60) X 10*6/uL Glucose 125 H (70-110) mg/dL Phosphorus 2.3 L (2.4-5.1) mg/dL AST 45 H (14-35) U/L ALT 159 H (10-49) U/L Alkaline Phosphatase 181 H (41-126) U/L Total Protein 6.0 L (6.2-8.2) g/dL Albumin 3.7 L (3.8-4.9) g/dL Ur Specific [place] 1.037 H (1.001-1.035) Urine Protein 1+ H (Negative) Urine Mucus Many H (None) /hpf H & H 10/10/23 10/11/23 Range/Units 15:42 07:07 Hgb 14.4 13.4 (13.0-17.5) gm/dL Hct 43.3 40.1 (39.0-53.0) % Result Diagrams: 10/11/23 07:07 10/11/23 07:07 - Diagnostic results Hip CT: report reviewed, image reviewed (CT of the right hip does reveal mixed density lesion which appears to be evident on CT scan that was performed in 2009. Negative for any open fractures or dislocations.) Assessment and Plan Plan: 1. Right hip femoral neck lesion/mass - CT of the right hip does reveal mixed density lesion which appears to be evident on CT scan that was performed in 2009. Negative for any open fractures or dislocations. I did discuss the findings of the exam and imaging with my attending, Dr. Jurado. At this time we are not recommending any emergent orthopedic surgical intervention. Due to the patient having increased pain in the right hip over the past month, patient is at risk for pathologic fracture of the right femur due to the lesion. May be a primary lesion/mass or secondary mass. We do recommend patient to urgently follow-up with orthopedic oncologist for possible biopsy and potential need for surgical fixation to stabilize the right femur. Due to the risk for pathologic fracture, we are recommending patient to be nonweightbearing to the right lower extremity. Pain medication as needed. We will be available as needed to see patient during stay in hospital. Patient is stable from an orthopedic standpoint for discharge and we do recommend patient to see orthopedic oncolog ist in the outpatient setting within the next couple weeks. 2. Appreciate medical management 3. Pain management -Shirley; Toradol 4. DVT prophylaxis - heparin 5. GI prophylaxis - pepcid 6. PT/OT -nonweightbearing right lower extremity. Use walker 7. Encourage incentive spirometer use 8. Appreciate consult Time with Patient: Less than 30
--- NOTE | 2023-10-11 17:25 | P.PN ---
Subjective Progress Note Date: 10/11/23 58 year old M with aortic aneurysm, hypertension, GERD presents to the ED for RUQ abdominal pain. Pain progressively getting worse over the past 2 weeks, 10/10 in severity, colicky in nature, aggravated with meals. He reports being told of gallbladder issues and need for surgery on October 02. He also reported fever, chills, NBNB N/V and decreased PO intake. In the ED he underwent extensive evaluation. BP 123/77 HR 77 RR 18 97% on RA. CBC and CMP done signficant for glu 101, AST 61, HLT 214, alk phos 171. Trop < 0.012. Lipase 164. COVID, RSV, Flu negative. UA 1+ protein, negative LE or nitrite. GB US calcified gall bladder with cholelithiasis> KUB showed right femur mass. Patient was admitted for surgery consultation. 10/10 Patient was seen and examined prior to surgery. He reports well controlled abdominal pain. No nausea or vomiting. CT AP and CT hip ordered by Surgery. Plans for cholecystectomy today. CBC RBC 4.38. CMP glu 125, AST 45, ALT 159, alk phos 181, alb 3.7. Phos 2.1. General: non toxic, no distress, appears at stated age Derm: warm, dry Head: atraumatic, normocephalic, symmetric Eyes: EOMI, no lid lag, anicteric sclera Mouth: no lip lesion, mucus membranes moist Cardiovascular: S1S2 reg, no murmur Lungs: Clear to auscultation BS bilateral, no rhonchi, no rales , no accessory muscle use Abd: Soft. Non tender to palpation. + BS. Ext: no gross muscle atrophy, no edema, no contractures Neuro: no focal neuro deficits Psych: Alert, oriented, appropriate affect Based on my assessment of this patient, this patient meets a high complexity level of care. Chronic cholecystitis with porcelain gall bladder: Unasyn 3g IV TID (D2). Zofran 4 mg IV Q6H PRN for N/V. NS at 75 cc/hr. Morphine 4 mg IV Q4H PRN. Follow BCx. Plans for cholecystectomy today. Surgery on board. Femur mass: CT Femur ordered. Orthopedic Sx consult. Hypertension: Losartan 25 mg PO QD. GERD: Protonix 40 mg PO QD. Aortic aneurysm CODE STATUS: FULL CODE DVT Prophylaxis: Heparin GI Prophylaxis: Protonix Designated medical POA if patient is not able to make medical decisions for themselves: I have reviewed the following foreign law consultant notes: Surgery I have reviewed the results of the following tests: CBC, CMP. Phos. I have ordered the following tests: CBC, CMP. CT AP and CT femur pending. I have discussed the care of this patient with the following independent historian: I have independently interpreted the following test below: I have discussed the management of this patient with the following physician: Objective - Vital Signs Vital signs: Vital Signs Temp 97 F L 10/11/23 16:07 Pulse 55 L 10/11/23 17:20 Resp 19 10/11/23 17:20 BP 155/85 10/11/23 17:20 Pulse Ox 95 10/11/23 17:20 FiO2 Intake & Output 10/10/23 10/11/23 10/11/23 18:59 06:59 18:59 Intake Total 900 Output Total 5 Balance 895 Weight 82.554 kg Intake: IV 900 Output: Estimated Blood Loss 5 - Labs CBC & Chem 7: 10/11/23 07:07 10/11/23 07:07 Labs: Abnormal Lab Results - Last 24 Hours (Table) 10/10/23 10/11/23 10/11/23 Range/Units 22:25 07:07 07:07 RBC 4.38 L (4.40-5.60) X 10*6/uL Glucose 125 H (70-110) mg/dL Phosphorus 2.3 L (2.4-5.1) mg/dL AST 45 H (14-35) U/L ALT 159 H (10-49) U/L Alkaline Phosphatase 181 H (41-126) U/L Total Protein 6.0 L (6.2-8.2) g/dL Albumin 3.7 L (3.8-4.9) g/dL Ur Specific [place] 1.037 H (1.001-1.035) Urine Protein 1+ H (Negative) Urine Mucus Many H (None) /hpf
[2023-10-11] MEDS: KETOROLAC 15 MG/ML 1 ML VIAL IVP SCH (18:14)
[2023-10-11] MEDS: ONDANSETRON 4 MG/2 ML VIAL IVP PRN (18:14)
[2023-10-11] MEDS: HYDROcodone/APAP 5-325MG 1 EACH TAB PO PRN (20:19)
[2023-10-11] MEDS: FAMOTIDINE 20 MG TAB PO SCH (20:19)
[2023-10-11] MEDS: MORPHINE SULFATE 4 MG/ML SYRINGE IV PRN (22:40)
[2023-10-12] MEDS: ACETAMINOPHEN TAB 325 MG TAB PO PRN (06:24)
[2023-10-12 09:22] LABS: Basophils # (A) 0.03 X 10*3/uL (0.00-0.10); Basophils % (A) 0.3 %; Eosinophils # (A) 0.07 X 10*3/uL (0.04-0.35); Eosinophils % (A) 0.7 %; HCT 40.4 % (39.6-50.0); HGB 13.9 g/dL (13.0-17.0); Lymphocytes # (A) 2.08 X 10*3/uL (0.90-5.00); Lymphocytes % (A) 21.2 %; MCH 31.4 pg (27.0-32.0); MCHC 34.4 g/dL (32.0-37.0); MCV 91.2 FL (80.0-97.0); Monocytes # (A) 0.59 X 10*3/uL (0.20-1.00); NRBC Per 100 WBC 0 X 10*3/uL (0.00-0.01); Neutrophils # (A) 7.02 X 10*3/uL (1.80-7.70); Neutrophils % (A) 71.4 %; Platelet Count 204 X 10*3/uL (140-440); RBC 4.43 X 10*6/uL (4.40-5.60); RDW 11.7 % (11.5-14.5); WBC 9.83 X 10*3/uL (4.50-10.00)
[2023-10-12 10:20] LABS: ALT 172 U/L (10-49); AST 61 U/L (14-35); Albumin 3.9 g/dL (3.8-4.9); Albumin/Globulin Ratio 1.77 Ratio (1.60-3.17); Alkaline Phosphatase 177 U/L (41-126); BUN/Creat Ratio 13.86 Ratio (12.00-20.00); Blood Urea Nitrogen 9.7 mg/dL (9.0-27.0); Calcium 8.8 mg/dL (8.7-10.3); Carbon Dioxide 25.1 mmol/L (21.6-31.8); Chloride 105 mmol/L (96-109); Globulin 2.2 g/dL (1.6-3.3); Glucose 101 mg/dL (70-110); Potassium 3.9 mmol/L (3.5-5.5); Sodium 142 mmol/L (135-145); Total Bilirubin 0.8 mg/dL (0.3-1.2); Total Protein 6.1 g/dL (6.2-8.2)
--- NOTE | 2023-10-12 11:26 | P.PN ---
Subjective Progress Note Date: 10/12/23 Principal diagnosis: 1. Right hip femoral neck lesion/mass Patient was seen at bedside this morning lying; position. Patient had surgery yesterday for laparoscopic cholecystectomy. Patient is understanding of the results of the imaging of his right hip and the concern for fracture to the right lower extremity if patient is to bear weight full weight. Patient is aware that he does need to follow-up with orthopedic oncologist once he is discharged from the hospital. Patient denies fever, chest pain, shortness of breath, loss of bowel/bladder control. Objective - Vital Signs Vital signs: Vital Signs Temp 98.5 F 10/12/23 06:55 Pulse 47 L 10/12/23 06:55 Resp 16 10/12/23 06:55 BP 152/72 10/12/23 06:55 Pulse Ox 98 10/12/23 06:55 FiO2 Intake & Output 10/11/23 10/12/23 10/12/23 18:59 06:59 18:59 Intake Total 900 Output Total 5 Balance 895 Intake: IV 900 Output: Estimated Blood Loss 5 Other: Voiding Method Urinal # Voids 1 1 - Exam Negative for any open fractures, significant erythema/ecchymosis. Abdominal wounds present from laparoscopic cholecystectomy. Right hip presents with out any swelling or ecchymosis or open fractures. Sensation is equal, symmetric, bilateral intact throughout the upper and lower extremities on exam. There is a fair amount of tenderness to palpation diffusely throughout the right hip and groin. Patient has full range of motion throughout bilateral lower extremities and upper extremities on exam. There is some pain reproduced with resisted right hip flexion/extension. 4/5 in all major motor groups in bilateral upper and lower extremities. Radial pulse intact, 2+ bilaterally. Cap refill under 3 seconds in digits of upper extremities. Negative Homans bilaterally. - Labs CBC & Chem 7: 10/12/23 04:34 10/12/23 04:34 Labs: Abnormal Lab Results - Last 24 Hours (Table) 10/12/23 Range/Units 04:34 AST 61 H (14-35) U/L ALT 172 H (10-49) U/L Alkaline Phosphatase 177 H (41-126) U/L Total Protein 6.1 L (6.2-8.2) g/dL Microbiology - Last 24 Hours (Table) 10/10/23 18:25 Blood Culture - Preliminary Blood 10/10/23 18:01 Blood Culture - Preliminary Blood Assessment and Plan Assessment: 1. Right hip femoral neck lesion/mass Plan: 1. Right hip femoral neck lesion/mass - CT of the right hip does reveal mixed density lesion which appears to be evident on CT scan that was performed in 2009. Negative for any open fractures or dislocations. I did discuss the findings of the exam and imaging with my attending, Dr. Jurado. At this time we are not recommending any emergent orthopedic surgical intervention. Due to the patient having increased pain in the right hip over the past month, patient is at risk for pathologic fracture of the right femur due to the lesion. May be a primary lesion/mass or secondary mass. We do recommend patient to urgently follow-up with orthopedic oncologist for possible biopsy and potential need for surgical fixation to stabilize the right femur. Due to the risk for pathologic fracture, we are recommending patient to be toe-touch weightbearing for the right lower extremity with the use of a walker. Prescription for walker was signed. Pain medication as needed. Patient is stable from an orthopedic standpoint for discharge and we do recommend patient to see orthopedic oncologist in the outpatient setting within the next couple weeks. Orthopedics signing off. Please do not hesitate to contact us with any further question 2. Appreciate medical management 3. Pain management -[facility]; Toradol 4. DVT prophylaxis - heparin 5. GI prophylaxis - pepcid 6. PT/OT -nonweightbearing right lower extremity. Use walker 7. Encourage incentive spirometer use Time with Patient: Less than 30
--- NOTE | 2023-10-12 11:41 | P.PN ---
Subjective Progress Note Date: 10/12/23 58 year old M with aortic aneurysm, hypertension, GERD presents to the ED for RUQ abdominal pain. Pain progressively getting worse over the past 2 weeks, 10/10 in severity, colicky in nature, aggravated with meals. He reports being told of gallbladder issues and need for surgery on October 02. He also reported fever, chills, NBNB N/V and decreased PO intake. In the ED he underwent extensive evaluation. BP 123/77 HR 77 RR 18 97% on RA. CBC and CMP done signficant for glu 101, AST 61, HLT 214, alk phos 171. Trop < 0.012. Lipase 164. COVID, RSV, Flu negative. UA 1+ protein, negative LE or nitrite. GB US calcified gall bladder with cholelithiasis. KUB showed right femur mass. Patient was admitted for surgery consultation. Patient was started on Unasyn. CT AP showed cholelithiasis verses partially calcified gallbladder wall. He underwent laparoscopic cholecystectomy on 10/10. Orthopedic Sx evaluated the patient with regard to right femoral mass. CT of the hip showed 5.4 cm mixed density lesions involving the right femoral neck extending down into the intertrochanteric region. Orthopedic Sx recommended outpatient follow up with Orthopedic Oncologist and toe touch weightbearing in the meantime. 10/10 Patient was seen and examined. He reports 3 episodes of N/V post surgery. He feels it is because of the food selection and would like to try a more solid diet. Abdominal pain is well controlled. He is not sure what to do with regard to his toe touch weightbearing status. He may be open to rehab. CBC unremarkable. CMP AST 61, ALT 172, alk phos 177, total protein 6.1. General: non toxic, no distress, appears at stated age Derm: warm, dry Head: atraumatic, normocephalic, symmetric Eyes: EOMI, no lid lag, anicteric sclera Mouth: no lip lesion, mucus membranes moist Cardiovascular: S1S2 reg, no murmur Lungs: Clear to auscultation BS bilateral, no rhonchi, no rales , no accessory muscle use Abd: Soft. Non tender to palpation. + BS. Ext: no gross muscle atrophy, no edema, no contractures Neuro: no focal neuro deficits Psych: Alert, oriented, appropriate affect Based on my assessment of this patient, this patient meets a high complexity level of care. Chronic cholecystitis with porcelain gallbladder: Unasyn discontinued. Zofran 4 mg IV Q6H PRN for N/V. NS at 75 cc/hr. Morphine 4 mg IV Q4H PRN. BCx prelim negative. Advance diet as tolerated. Surgery on board. Femur mass: Orthopedic Sx recommended outpatient follow up with Orthopedic Oncologist and toe touch weightbearing in the meantime. PT and OT consulted. Hypertension: Losartan 25 mg PO QD. GERD: Protonix 40 mg PO QD. Aortic aneurysm CODE STATUS: FULL CODE DVT Prophylaxis: Heparin GI Prophylaxis: Protonix Designated medical POA if patient is not able to make medical decisions for themselves: I have reviewed the following rural health consultant notes: Orthopedic Sx note. I have reviewed the results of the following tests: CBC, CMP. CT AP. CT hip. I have ordered the following tests: I have discussed the care of this patient with the following independent historian: I have independently interpreted the following test below: I have discussed the management of this patient with the following physician: Objective - Vital Signs Vital signs: Vital Signs Temp 98.5 F 10/12/23 06:55 Pulse 47 L 10/12/23 06:55 Resp 16 10/12/23 06:55 BP 152/72 10/12/23 06:55 Pulse Ox 98 10/12/23 06:55 FiO2 Intake & Output 10/11/23 10/12/23 10/12/23 18:59 06:59 18:59 Intake Total 900 Output Total 5 Balance 895 Intake: IV 900 Output: Estimated Blood Loss 5 Other: Voiding Method Urinal # Voids 1 1 - Labs CBC & Chem 7: 10/12/23 04:34 10/12/23 04:34 Labs: Abnormal Lab Results - Last 24 Hours (Table) 10/12/23 Range/Units 04:34 AST 61 H (14-35) U/L ALT 172 H (10-49) U/L Alkaline Phosphatase 177 H (41-126) U/L Total Protein 6.1 L (6.2-8.2) g/dL Microbiology - Last 24 Hours (Table) 10/10/23 18:25 Blood Culture - Preliminary Blood 10/10/23 18:01 Blood Culture - Preliminary Blood
[2023-10-12] MEDS: METOCLOPRAMIDE 10 MG TAB PO SCH (13:28)
--- NOTE | 2023-10-12 14:39 | P.PN ---
Subjective Progress Note Date: 10/12/23 Patient reports multiple intolerances to food including apple juice, grape juice, popsicles, gravy, food restrictions. Patient reports having vomiting twice today. He is urinating much. Patient is on a low-fat diet tray. Abdomen: Incisions clean dry intact. Labs: LFTs stable. Plan: 1. Patient advised to notify dietary regarding his multiple aversions. 2. Will decrease IV fluids as he reports moderate micturition 3. Stable for discharge when medically stable Objective - Vital Signs Vital signs: Vital Signs Temp 98.5 F 10/12/23 06:55 Pulse 47 L 10/12/23 06:55 Resp 16 10/12/23 06:55 BP 152/72 10/12/23 06:55 Pulse Ox 98 10/12/23 06:55 FiO2 Intake & Output 10/11/23 10/12/23 10/12/23 18:59 06:59 18:59 Intake Total 900 Output Total 5 Balance 895 Intake: IV 900 Output: Estimated Blood Loss 5 Other: Voiding Method Urinal # Voids 1 1 1 - Labs CBC & Chem 7: 10/12/23 04:34 10/12/23 04:34 Labs: Abnormal Lab Results - Last 24 Hours (Table) 10/12/23 Range/Units 04:34 AST 61 H (14-35) U/L ALT 172 H (10-49) U/L Alkaline Phosphatase 177 H (41-126) U/L Total Protein 6.1 L (6.2-8.2) g/dL Microbiology - Last 24 Hours (Table) 10/10/23 18:25 Blood Culture - Preliminary Blood 10/10/23 18:01 Blood Culture - Preliminary Blood
[2023-10-12] MEDS: DICYCLOMINE 10 MG CAP PO SCH (15:11)
[2023-10-12] MEDS: traZODone HCL 100 MG TAB PO SCH (20:13)
[2023-10-13] MEDS: DULoxetine HCL 30 MG CAPSULE.DR PO SCH (08:15)
--- NOTE | 2023-10-13 13:26 | P.PN ---
Subjective Progress Note Date: 10/13/23 the patient's a well. He is going to be dilated by PT today for help with ambulation. On exam vital signs appear stable. Abdomen soft. Status post laparoscopic colostomy. Patient will follow-up Dr. Motta next week. Objective - Vital Signs Vital signs: Vital Signs Temp 98.5 F 10/13/23 07:30 Pulse 57 L 10/13/23 07:30 Resp 16 10/13/23 07:30 BP 151/52 10/13/23 07:30 Pulse Ox 98 10/13/23 07:30 FiO2 Intake & Output 10/12/23 10/13/23 10/13/23 18:59 06:59 18:59 Intake Total 472 236 Output Total 150 Balance 472 -150 236 Intake: Oral 472 236 Output: Urine 150 Other: # Voids 1 1 - Labs CBC & Chem 7: 10/12/23 04:34 10/12/23 04:34 Labs: Microbiology - Last 24 Hours (Table) 10/10/23 18:25 Blood Culture - Preliminary Blood 10/10/23 18:01 Blood Culture - Preliminary Blood
--- NOTE | 2023-10-13 16:47 | P.PN ---
Subjective Progress Note Date: 10/13/23 Patient is a 58 year-old male with know aortic aneurysm, HTN, and GERD who presented to the emergency department with right upper quadrant pain. In the ER he underwent an extensive evaluation. Initial vital signs were within normal limits. Laboratory analysis was remarkable for AST 61 and ALT of 214. He underwent gallbladder ultrasound which demonstrated calcified thickening of the gallbladder wall with marked cholelithiasis and negative ultrasonic Bliss's with porcelain gallbladder. He underwent a KUB which demonstrated nonspecific abdomen with a right femur mass and recommended CT. He was admitted for porcelain gallbladder and was started on Unasyn. Surgery was consulted. He un derwent CT of the hip which demonstrated large 5.4 cm mixed density lesion involving the right femoral neck extending to the intertrochanteric region with similar lesion in 2010 which is slight and does feel scalloping along the anterior femoral neck which could predispose the patient to pathologic fracture. CT abdomen and pelvis demonstrated no acute process with cholelithiasis versus partially calcified gallbladder wall. Patient subsequently underwent laparoscopic cholecystectomy on 10/11/2023. Orthopedic surgery was consulted. They recommended outpatient follow-up with orthopedic oncology and nonweightbearing status. Patient continued to do well. Patient seen and examined at bedside. Mild abdominal pain. Still having loose stools but no nausea or vomiting today. Had 1 episode of vomiting yesterday. Had a long discussion about the findings of his femoral mass including the fact that it was present back in 2009 and could be benign but still has increased risk of pathologic fracture due to some of the findings on CT as well as the importance of staying off of work, maintaining a nonweightbearing status, and following up with orthopedic oncology. Vital signs reviewed General: Nontoxic, no distress, appears at stated age Cardiovascular: S1S2 reg, no murmur Lungs: CTA bilateral, no rhonchi, no rales, no accessory muscle use Abdominal: Soft, nontender to palpation, no guarding Ext: No gross muscle atrophy, no edema b/l lower extremities, no contractures Neuro: CN II-XI grossly intact, no focal neuro deficits Psych: Alert, oriented, appropriate affect Assessment/Plan: Chronic cholecystitis with porcelain gallbladder status post laparoscopic cho lecystectomy -Surgery has signed off -Continue with morphine 4 mg IV every 4 hours as needed for severe pain, tramadol 200 mg at night, [place] 5/325 1 tablet every 4 hours as needed for moderate pain. Femoral neck mass -Orthopedic recommendations reviewed: Outpatient follow-up with orthopedic oncology. Nonweightbearing status. -PT and OT evaluation for nonweightbearing status Hypertension -Losartan 25 mg daily GERD -Protonix 40 mg daily History of aortic aneurysm Imaging: None new Data Review: None new DVT prophylaxis: Heparin Anticipated discharge date: In a.m. Anticipated discharge place: Home This dictation was prepared using [employer] voice recognition software. Though every attempt is made to correct errors during dictation some may still exist. Objective - Vital Signs Vital signs: Vital Signs Temp 98.5 F 10/13/23 13:50 Pulse 56 L 10/13/23 13:50 Resp 16 10/13/23 13:50 BP 172/88 10/13/23 13:50 Pulse Ox 98 10/13/23 13:50 FiO2 Intake & Output 10/12/23 10/13/23 10/13/23 18:59 06:59 18:59 Intake Total 472 472 Output Total 150 Balance 472 -150 472 Intake: Oral 472 472 Output: Urine 150 Other: # Voids 1 1 1 - Labs CBC & Chem 7: 10/12/23 04:34 10/12/23 04:34 Labs: Microbiology - Last 24 Hours (Table) 10/10/23 18:25 Blood Culture - Preliminary Blood 10/10/23 18:01 Blood Culture - Preliminary Blood
[2023-10-14] MEDS ORDERED: ALBUTEROL NEBULIZED 2.5 MG/3 ML INHALATION PRN (09:13)
--- NOTE | 2023-10-14 13:06 | P.PN ---
Subjective Progress Note Date: 10/14/23 Principal diagnosis: Right hip lesion The patient was seen and examined by myself today at bedside. He is updated regarding the plan going forward for his right hip lesion. He is recovering well from his recent surgery. He states over the last several months he has noticed increasing right hip pain but still been able to bear weight and described it as more of a dull ache. Objective - Vital Signs Vital signs: Vital Signs Temp 98.7 F 10/14/23 07:00 Pulse 53 L 10/14/23 08:00 Resp 16 10/14/23 08:00 BP 165/86 10/14/23 07:00 Pulse Ox 96 10/14/23 07:00 FiO2 Intake & Output 10/13/23 10/14/23 10/14/23 18:59 06:59 18:59 Intake Total 708 236 Balance 708 236 Intake: Oral 708 236 Other: Voiding Method Urinal Urinal # Voids 1 2 - Exam RLE: 5/5 EHL/FHL/PF/DF. SILT L5-S1. 2+/4 DP/PT pulses palpated. NTTP over lateral/medial malleolus. Mild pain with log roll in groin/hip region. - Labs CBC & Chem 7: 10/12/23 04:34 10/12/23 04:34 Labs: Microbiology - Last 24 Hours (Table) 10/10/23 18:25 Blood Culture - Preliminary Blood 10/10/23 18:01 Blood Culture - Preliminary Blood Assessment and Plan Assessment: 1.) Right hip peritrochanteric lesion Plan: Imaging findings were discussed with the patient at bedside today. We discussed he has a lytic lesion in the peritrochanteric region of his right hip that is lytic in nature and takes up approximately 90% of the width of his medullary canal and he's been having increasingly worsening pain with normal function in the right hip region. We discussed he has a high risk of having a pathologic fracture and that further workup should be performed on an urgent but outpatient basis. I recommend toe-touch weightbearing with a walker until further evaluation. Discharge follow-up instructions to follow-up with Dr. Johnson Burgos at [facility] who specializes in orthopedic oncology is given. Our team has reached out to Dr. Burgos's office and he is able to get in this Saturday, the patient will need to call the office to set up a specific time. The patient expressed understanding and was agreeable with this plan of action. -Paco Jurado DO Orthopedic Surgeon
--- NOTE | 2023-10-14 13:41 | P.DS ---
Providers Date of admission: 10/10/23 18:01 Attending physician: Yaya Suarez MD Consults: 10/10/23 18:25 Consult Physician Routine Consulting Provider: Wilner Motta Consult Reason/Comments: sarah Do you want consulting provider notified?: Yes 10/11/23 04:32 Consult Physician Routine Consulting Provider: Paco Jurado Consult Reason/Comments: right femur mass Do you want consulting provider notified?: Yes, Notify in am Primary care physician: Dahlia Hansen MD Hospital Course: Discharge Diagnosis: Chronic cholecystitis with porcelain gallbladder status post laparoscopic cholecystectomy Lytic lesion right femur Hypertension GERD History of aortic aneurysm Chronic pain Hospital Course: Patient is a 58 year-old male with know aortic aneurysm, HTN, and GERD who presented to the emergency department with right upper quadrant pain. In the ER he underwent an extensive evaluation. Initial vital signs were within normal limits. Laboratory analysis was remarkable for AST 61 and ALT of 214. He underwent gallbladder ultrasound which demonstrated calcified thickening of the gallbladder wall with marked cholelithiasis and negative ultrasonic Bliss's with porcelain gallbladder. He underwent a KUB which demonstrated nonspecific abdomen with a right femur mass and recommended CT. He was admitted for porcelain gallbladder and was started on Unasyn. Surgery was consulted. He underwent CT of the hip which demonstrated large 5.4 cm mixed density lesion involving the right femoral neck extending to the intertrochanteric region with similar lesion in 2009 which is slight and does feel scalloping along the anterior femoral neck which could predispose the patient to pathologic fracture. CT abdomen and pelvis demonstrated no acute process with cholelithiasis versus partially calcified gallbladder wall. Patient subsequently underwent laparoscopic cholecystectomy on 10/11/2023. Orthopedic surgery was consulted. They recommended outpatient follow-up with orthopedic oncology and toe touch weight bear status and coordinated urgent follow-up with Dr. Burgos (ortho onc out of [place]). Patient continued to do well and was determined stable for discharge. Follow-up: Dr. Burgos from [place] on Saturday regarding lytic lesion of femur. Given Rx of walker and is to be toe touch weight bear. Dr. Motta this week. Dr. Hansen in 1-2 dasy. Oxy in lieu of Tylenol # 3 for the next few days Patient seen and examined at bedside. Stool is more formed. No nuasea. Tolerating diet. Pain is well controlled. We had a discussion about not using his Tylenol #3 when needing the oxycodone andpatinet understands that using both toghter could lead to overdose and . He will use the ocy for the next few days during recovery and then resume his home T#3. Vital signs reviewed and stable. General: Nontoxic, no distress, appears at stated age Cardiovascular: S1S2 reg, no murmur, positive posterior tibial pulse bilateral, Lungs: CTA bilateral, no rhonchi, no rales, no accessory muscle use Abdominal: Soft, nontender to palpation, no guarding, no appreciable organomegaly Ext: No gross muscle atrophy, no edema b/l lower extremities, no contractures Neuro: CN II-XI grossly intact, no focal neuro deficits Psych: Alert, oriented, appropriate affect A total of 47 minutes of time were spent preparing this complex discharge s [email or web address]. Patient was discharged on 10/14/23. This dictation was prepared using [email or web address] voice recognition software. Though every attempt is made to correct errors during dictation some may still e xist. Patient Condition at Discharge: Fair Plan - Discharge Summary Discharge Rx Participant: No New Discharge Prescriptions: New oxyCODONE HCL [OxyIR] 5 mg PO Q6H PRN 3 Days #6 tab PRN Reason: Breakthrough Pain Continue Pregabalin [Lyrica] 50 mg PO BID Omeprazole 40 mg PO DAILY Metoclopramide [Reglan] 10 mg PO QID Dicyclomine [Bentyl] 10 mg PO TID Famotidine [Pepcid] 40 mg PO HS traZODone HCL [Desyrel] 200 mg PO HS DULoxetine HCL [Cymbalta] 30 mg PO DAILY Albuterol Sulfate [Albuterol Sulfate Hfa] 2 puff PO RT-Q6H PRN PRN Reason: Shortness Of Breath Acetaminophen-Codeine 300-30mg [Tylenol w/codeine #3] 1 tab PO BID Losartan [Cozaar] 25 mg PO DAILY Fluticasone Nasal [place] [Flonase Nasal [place]] 1 spray EA NOSTRIL DAILY Discharge Medication List Acetaminophen-Codeine 300-30mg [Tylenol w/codeine #3] 1 tab PO BID 10/10/23 [History] Albuterol Sulfate [Albuterol Sulfate Hfa] 2 puff PO RT-Q6H PRN 10/10/23 [History] DULoxetine HCL [Cymbalta] 30 mg PO DAILY 10/10/23 [History] Dicyclomine [Bentyl] 10 mg PO TID 10/10/23 [History] Famotidine [Pepcid] 40 mg PO HS 10/10/23 [History] Fluticasone Nasal [place] [Flonase Nasal [place]] 1 spray EA NOSTRIL DAILY 10/10/23 [History] Losartan [Cozaar] 25 mg PO DAILY 10/10/23 [History] Metoclopramide [Reglan] 10 mg PO QID 10/10/23 [History] Omeprazole 40 mg PO DAILY 10/10/23 [History] Pregabalin [Lyrica] 50 mg PO BID 10/10/23 [History] traZODone HCL [Desyrel] 200 mg PO HS 10/10/23 [History] oxyCODONE HCL [OxyIR] 5 mg PO Q6H PRN 3 Days #6 tab 10/11/23 [Rx] Follow up Appointment(s)/Referral(s): Wilner Motta MD [Medical Doctor] - 1 Week Johnson Burgos MD [REFERRING] - 3 Days (Take CD of imaging/report of right hip to orthopedic onocology appointment) [employer] [NON-STAFF] - As Needed (will deliver walker, any questions please call agency,) Dahlia Hansen MD [Primary Care Provider] - 1-2 days Patient Instructions/Handouts: *Surgery [facility] - ([facility]) Laparoscopic Cholecystectomy Activity/Diet/Wound Care/Special Instructions: Special Instructions: Follow up with Dr. Johnson Burgos at [place] for orthopedic oncology. CONTACT Orthopedic Oncology office at [phone]. Select schedule appointment option. If you need assistance, select option to speak with nurse. Please take your disk with you to the appointment. You can take either the Oxycodone prescribed or your home Tylenol # 3 but please do not use together. Do not use when driving. Activity: OKAY TO BE TOE-TOUCH WEIGHT BEARING WITH WALKER FOR RIGHT LOWER EXTREMITY Diet: Low fat diet.
[2023-10-14 14:36] VITALS: BP 167/89; PULSE 70; RESP 18; TEMP 98
--- NOTE | 2023-10-14 14:41 | P.PN ---
Subjective Progress Note Date: 10/14/23 Principal diagnosis: Cholecystitis Patient doing better today. Says over the weekend his pain and nausea resolved. Feeling well currently. Tolerating regular diet. He would like to go home today. Orthopedics has seen him regarding his bony abnormality in the right hip. Liver enzymes from 2 days ago still mildly elevated. Objective - Vital Signs Vital signs: Vital Signs Temp 98 F 10/14/23 14:35 Pulse 70 10/14/23 14:35 Resp 18 10/14/23 14:35 BP 167/89 10/14/23 14:35 Pulse Ox 97 10/14/23 14:35 FiO2 Intake & Output 10/13/23 10/14/23 10/14/23 18:59 06:59 18:59 Intake Total 708 476 Balance 708 476 Intake: Oral 708 476 Other: Voiding Method Urinal Urinal # Voids 1 2 3 - Exam Abdomen: Soft, nondistended, incisions clean and dry, nontender - Labs CBC & Chem 7: 10/12/23 04:34 10/12/23 04:34 Labs: Microbiology - Last 24 Hours (Table) 10/10/23 18:25 Blood Culture - Preliminary Blood 10/10/23 18:01 Blood Culture - Preliminary Blood Assessment and Plan (1) Cholecystitis Narrative/Plan: 58-year-old male doing well after recent laparoscopic cholecystectomy for acute calculus cholecystitis on Saturday. Continue low-fat diet. Avoid lifting over 10 pounds. May discharge. Will plan outpatient CMP to monitor transaminases. Current Visit: Yes Status: Acute Code(s): K81.9 - CHOLECYSTITIS, UNSPECIFIED SNOMED Code(s): 17655488
== END 2023-10-14 14:39 | disposition home or self-care (01) ==
LOC: EC 14:11 → 6NMEDSUR 18:01
PROVIDERS: ADMIT Internal Medicine; ATTEND Internal Medicine
DX: K80.20 Calculus of gallbladder without cholecystitis without obstruction (principal); I10 Essential (primary) hypertension; K21.9 Gastro-esophageal reflux disease without esophagitis; G89.4 Chronic pain syndrome; I71.9 Aortic aneurysm of unspecified site, without rupture
CPT/HCPCS: 96361; 96365; 96372 ×6; 96375; 99285; 36415; 97162; 88304; 80053 ×3; 82150; 83690 ×2; 83735; 84100; 84484; 85025 ×3; 81001; 87040; 87636; 74018; 76705; 74177; 73701; 47562; G0378 ×5; J2250; J0330; J2270; J0360; J1644 ×4; J2710; J2405 ×3; J2001; J3010; J1170 ×3; J0295 ×3; J1885 ×4; J2704; C9113; Q9967; J0665; J1920